=== PATIENT | female | born 1970 | race Caucasian/White ===

== ENCOUNTER → 2019-02-14 09:29 | Outpatient (CLI) | payer BC, SELFPAY ==
--- NOTE | 2019-02-14 10:00 | CT_ITS ---
CT abdomen pelvis wo con CLINICAL INDICATION: ITS.REASON: RLQ PAIN,ABD MASS, ORDERING PHYSICIAN: Chanelle William APRN PATIENT AGE: 48 years COMPARISON: 03/19/2013 TECHNIQUE: Axial images obtained with sagittal and coronal reformats. All CT scans at the facility use one or more dose reduction, viz: automated exposure control, ma/kV adjustment per patient size (including targeted exams where dose is matched to indication, i.e. head), or iterative reconstruction technique. PROCEDURE: Oral Contrast: None IV Contrast: None . FINDINGS: Lower thorax: There is a nodular density in the right lung base posteriorly which measures approximately 10 x 6 mm. At least a portion of this is felt to have been imaged on older exam of 03-30. There is an additional 6 mm nodule in the left lower lobe have also been present previously. The images are obtained higher in the chest on today's study. There is a questionable smaller nodules in the right lower lobe seen on the most superior image. Dedicated CT chest may be followed by clinically desired. There is an isodensity in the right hepatic lobe at 5 mm unchanged suggesting a small cyst. The gallbladder, spleen, adrenal glands, pancreas, and kidneys have an unremarkable unenhanced appearance. No intestinal obstruction or free air. Unremarkable appendix. There is diverticulosis of the sigmoid colon but no evidence of diverticulitis. No pelvic mass or abnormal fluid collection or focal inflammatory change. There is a bone island within the right ilium. No acute bony findings are evident. IMPRESSION: 1. No acute abdominal or pelvic findings. 2. Bilateral lower lobe pulmonary nodules. Some of these are incompletely imaged and may be better evaluated with dedicated chest CT with contrast
== END ==
PROVIDERS: PCP Family Medicine; Visit Provider Nurse Practitioner Family
DX: R10.31 Right lower quadrant pain (principal); R19.00 Intra-abdominal and pelvic swelling, mass and lump, unspecified site; R91.8 Other nonspecific abnormal finding of lung field
CPT/HCPCS: 74176

== ENCOUNTER 2019-02-21 14:30 | Outpatient (RCR) | payer BC, SELFPAY ==
--- NOTE | 2019-02-15 16:43 | HMH.PTOPEV ---
PT Outpatient Evaluation Rehab PT Outpatient Evaluation Start: 02/15/19 15:56 Freq: Status: Active Protocol: Document 02/15/19 16:31 GERRYREGINO (Rec: 02/15/19 16:42 FRANCISCOSTEW [id number]) Electronically Signed By Paul Navarro, PT 02/15/19 16:31 Outpatient Therapy Subjective History Subjective History Pt is a 48 year old female presenting to outpatient PT with [facility] an episode of increased lifting acitivity . Most recent diagnostics indicate mild multi-level degenerative issues. Comorbidities include undisclosed GI issues and hx of tubal ligation. Chief Complaint Pain,Spasms,Stiff Symptom Type Ache Symptoms Relieved By Rest/Positioning,Heat, Prescription Meds Prior Functional Limitations None Current Functional Limitations Reaching,Lifting,Housework, Standing,Squatting,Recreation Activity,Walking,Bending/ Stooping Symptom Description Constant but Variable Level of pain today (0-10) 4 Pain scale - at its best (0-10) 6 Pain scale - at its worst (0-10) 1 Lumbopelvic Eval Posture Thoracic Spine Posture Standing Position Increased Kyphosis Lumbar Spine Posture Standing Position Increased Lordosis Assistive device Assistive Devices None / NA Gait Observation General Gait Pattern Observation No Deviations/Normal Palapation tenderness bilateral thoracic spinal tenderness Yes: 2/4 lumbar spinal tenderness Yes: 3/4 paraspinal tenderness Yes: 3/4 buttock tenderness Yes: 3/4 Accessory Movement L2 bilateral L3 bilateral L4 bilateral L5 bilateral S1 bilateral Range of Motion Lumbar Spine Active Flexion Range of 65 Motion (degrees) Lumbar Spine Active Extension Range of 10 Motion (degrees) Left Lumbar Spine Lateral Flexion Active 18 Range of Motion (degrees) Right Lumbar Spine Lateral Flexion 16 Active Range of Motion (degrees) Lumbar Spine ROM Limitations Soft Tissue Tightness Manual Muscle Test Bilateral Knee Extension Strength Grade 5 Normal Knee Flexion Strength Grade 5 Normal Hip Flexion Strength Grade 5 Normal Extensor Hallucis Longus Strength Grade 5 Normal
== END 2019-02-21 14:35 | disposition home or self-care (01) ==
LOC: PT 14:30
PROVIDERS: Visit Provider Nurse Practitioner Family
DX: M54.5 Low back pain (principal)
CPT/HCPCS: 97010; 97014; 97035; 97110; 97163; G0283

== ENCOUNTER 2019-07-23 13:00 | Outpatient (RCR) | payer BC, SELFPAY ==
--- NOTE | 2019-06-25 13:56 | HMH.PTOPEV ---
PT Outpatient Evaluation Rehab PT Outpatient Evaluation Start: 06/25/19 13:01 Freq: Status: Active Protocol: Document 06/25/19 13:44 PHOHERMAN (Rec: 06/25/19 13:56 PHORNE [id number]) Electronically Signed By Shahriar Mckeon, PT 06/25/19 13:44 Outpatient Therapy Subjective History Subjective History Pt is 48 yowf who presents with c/o left knee pain and stiffness x 1.5 mos S/P knee contusion. She states, I ran over a heater on my way out of the house for work because I was running late. SHe reports pain is worse on the medial side of the left knee and superior to the patella. SHe reports feeling increased swelling when she is standing for prolonged periods at work. She also states, I see it bruising on the side every day when it swells. She reports PMH of Asthma, OA, LBP, and anxiety. Chief Complaint Pain,Stiff Symptom Type Ache Symptoms Relieved By Rest/Positioning Symptoms Aggravated By Standing,Walking Prior Functional Limitations None Current Functional Limitations Standing,Walking Symptom Description Constant but Variable Level of pain today (0-10) 2 Pain scale - at its worst (0-10) 10 Hip/Knee Eval Gait Observation General Gait Pattern Observation Antalgic Gait Palpation Tenderness left Knee Palpation Finding Tenderness Knee Palpation Overall Comment exaggerated tenderness to medial jt line, quad tendon, and popliteal fossa. MMT Hip Flexion Strength Grade 5 Normal Hip Abduction Strength Grade 5 Normal Hip Adduction Strength Grade 5 Normal Hip Extension Strength Grade 5 Normal Knee Extension Strength Grade 4 Good Knee Flexion Strength Grade 4 Good ROM Knee Extension Active Range of Motion ( -10 degrees) Knee Extension Passive Range of Motion ( 0 degrees) Knee Flexion Active Range of Motion ( 10-120 degrees) Knee Flexion Passive Range of Motion ( 0-127 degrees) Special Tests Sciatic Nerve Tension Test Negative Left,Negative Right Hip Scouring (Quadrant) Test Negative Left,Negative Right Knee Apley Compression Test Negative Left,Negative Right Knee Anterior Drawer Test Negative Left,Negative Right
== END 2019-07-23 13:05 | disposition home or self-care (01) ==
LOC: PT 13:00
PROVIDERS: PCP Family Medicine; Visit Provider Orthopaedic Surgery
DX: S80.02XA Contusion of left knee, initial encounter (principal)
CPT/HCPCS: 97010; 97014; 97016; 97035; 97110; 97163; G0283

== ENCOUNTER → 2020-05-05 14:47 | Outpatient (CLI) | payer BC, SELFPAY ==
--- NOTE | 2020-05-05 | XR_ITS ---
PROCEDURE: XR HAND RT MIN 3V CLINICAL INDICATION: SWELLING RT HAND COMPARISON: CR HANDL3 HAND-LT-3 VIEWS from 03/23/2016 FINDINGS: No fracture or dislocation. No lytic or blastic change. There is normal mineralization. There are mild osteoarthritic changes involving the interphalangeal joint of the thumb, the DIP joint of the 2nd and 5th digit and the 1st metacarpal-carpal joint. There is a lucency involving the tuft of the distal phalanx of the 5th finger at 3 mm. Other findings:None. IMPRESSION: Mild osteoarthritic change. Lucent lesion at the tip of the distal phalanx of the 5th finger possibly due to an inclusion cyst Dictated by: Eric Russell MD 05/05/2020 16:22 Eric Russell MD in [place] 05/05/2020 16:22
--- NOTE | 2020-05-05 | XR_ITS ---
PROCEDURE: XR SHOULDER LT MIN 2V CLINICAL INDICATION: ACUTE PAIN LT SHOULDER COMPARISON: No exams were available for comparison FINDINGS: No fracture or dislocation. No lytic or blastic change. There is normal mineralization. Mild osteoarthritic changes of the acromioclavicular and glenohumeral joint. No acute fracture or dislocation. No lytic or blastic change. There is narrowing of the subacromial space. Other findings:. IMPRESSION: Mild osteoarthritis with subacromial stenosis Dictated by: Eric Russell MD 05/05/2020 16:18 Eric Russell MD in [place] 05/05/2020 16:18
== END ==
PROVIDERS: PCP Family Medicine; Visit Provider Nurse Practitioner Family
DX: M25.512 Pain in left shoulder (principal); M25.612 Stiffness of left shoulder, not elsewhere classified; M79.89 Other specified soft tissue disorders
CPT/HCPCS: 73030; 73130

== ENCOUNTER → 2020-05-26 13:59 | Outpatient (CLI) | payer BC, SELFPAY ==
--- NOTE | 2020-05-26 14:05 | MR_ITS ---
PROCEDURE: MR SHOULDER LT WO CON CLINICAL INDICATION: ACUTE PAIN OF LEFT SHOULDER Pt. c/o left shoulder pain x 3 months when she moves arm certain ways. Pt. co pain when she lifts arm and puts arm behind her back. Pt denies trauma or injury. Sat COMPARISON: CR XR SHOULDER LT MIN 2V from 05/05/2020 TECHNIQUE: Routine multiplanar multi echo sequences are performed without gadolinium enhancement. FINDINGS: Complete tear involves the supraspinatus tendon with mild retraction of the musculotendinous fibers. Full-thickness tear is present involving the infraspinatus tendon in its mid aspect laterally. There are some intact tendon fibers present posteriorly. There is subacromial stenosis with subacromial space measuring 4 mm. There are mild hypertrophic changes of the acromioclavicular joint. The subscapularis and teres minor tendons are intact. No obvious labral tear. The labrum is not well delineated due to motion artifact. The bicipital tendon does appear to be in place. No acute fracture or dislocation is evident. There is a small amount fluid in the shoulder joint and subcoracoid space as well as deep to the deltoid muscle and acromion. Small amount fluid is present in the bicipital tendon sheath. There is a small area of increased T2 signal in the subcortical region of the humeral head laterally IMPRESSION: 1. Complete tear of the supraspinatus tendon with retraction of the musculotendinous fibers. 2. Full-thickness tear of the infraspinatus tendon. 3. Acromioclavicular arthropathy/hypertrophy with subacromial stenosis. Dictated by: Eric Russell MD 05/27/2020 13:45 Eric Russell MD in [place] 05/27/2020 13:45
== END ==
PROVIDERS: PCP Family Medicine; Visit Provider Nurse Practitioner Family
DX: M25.512 Pain in left shoulder (principal); M25.612 Stiffness of left shoulder, not elsewhere classified; S49.92XA Unspecified injury of left shoulder and upper arm, initial encounter
CPT/HCPCS: 73221

== ENCOUNTER → 2020-06-16 09:27 | Outpatient (CLI) | payer BC, SELFPAY ==
--- NOTE | 2020-06-16 09:30 | XR_ITS ---
PROCEDURE: XR SHOULDER LT MIN 2V CLINICAL INDICATION: left shoulder pain COMPARISON: CR XR SHOULDER LT MIN 2V from 05/05/2020 FINDINGS: No fracture or dislocation. No lytic or blastic change. There is normal mineralization. The joint spaces are well-preserved. No significant degenerative/arthritic changes. No erosive changes evident. Other findings:Borderline subacromial stenosis. IMPRESSION: Borderline subacromial stenosis otherwise negative shoulder Dictated by: Eric Russell MD 06/16/2020 12:44 Eric Russell MD in [facility] 06/16/2020 12:44
== END ==
PROVIDERS: PCP Family Medicine; Visit Provider Orthopaedic Surgery
DX: M25.512 Pain in left shoulder (principal)
CPT/HCPCS: 73030

== ENCOUNTER → 2021-05-04 09:00 | Outpatient (POV) | payer BC, SELFPAY | PROVIDERS: Visit Provider Dermatology | DX: Z00.00 Encounter for general adult medical examination without abnormal findings (principal) ==

== ENCOUNTER → 2021-05-14 13:58 | Outpatient (CLI) | payer BC, SELFPAY | PROVIDERS: PCP Nurse Practitioner Family; Visit Provider Nurse Practitioner Family | DX: Z20.822 Contact with and (suspected) exposure to COVID-19 (principal); U07.1 COVID-19 | CPT/HCPCS: U0003 ==

== ENCOUNTER → 2021-06-04 11:11 | Outpatient (CLI) | payer BC, SELFPAY ==
--- NOTE | 2021-06-04 11:18 | XR_ITS ---
PROCEDURE: XR SHOULDER RT MIN 2V CLINICAL INDICATION: INJURY OF RT SHOULDER INITIAL ENCOUNTER, DECREASED ROM And COMPARISON: CR XR SHOULDER LT MIN 2V from 05/05/2020 CR XR SHOULDER LT MIN 2V from 06/16/2020 FINDINGS: No fracture or dislocation. No lytic or blastic change. There is normal mineralization. Mild osteoarthritic changes are present at the acromioclavicular joint. The glenohumeral joint has an unremarkable appearance. Other findings:Mild subacromial stenosis IMPRESSION: Mild acromioclavicular osteoarthropathy with mild subacromial stenosis Dictated by: Eric Russell MD 06/07/2021 07:56 Eric Russell MD in [facility] 06/07/2021 07:56
== END ==
PROVIDERS: PCP Nurse Practitioner Family; Visit Provider Nurse Practitioner Family
DX: S49.91XA Unspecified injury of right shoulder and upper arm, initial encounter (principal); M25.611 Stiffness of right shoulder, not elsewhere classified
CPT/HCPCS: 73030

== ENCOUNTER → 2021-06-08 13:54 | Outpatient (POV) | payer BC, SELFPAY | PROVIDERS: Visit Provider Dermatology | DX: Z00.00 Encounter for general adult medical examination without abnormal findings (principal) ==

== ENCOUNTER → 2021-06-15 10:58 | Outpatient (CLI) | payer BC, SELFPAY ==
--- NOTE | 2021-06-15 11:06 | US_ITS ---
PROCEDURE: US THYROID CLINICAL INDICATION: LT NECK SWELLING AFTER SURGERY COMPARISON: No exams were available for comparison FINDINGS: Right lobe: The right lobe is 4.7 x 1.7 by 1.8 cm. Numerous nodules are present on the right some of which are cystic. A 6 mm cyst is present in the upper pole. 3 mm cyst upper pole anteriorly. The additional 3 mm cyst upper pole anteriorly. Mixed nodules present in the mid polar region mostly cystic with internal area of increased echogenicity with a nodule measuring 5 x 4 mm. 3 mm cyst lower pole. In the inferior tip of the lower pole there is a hypoechoic nodule at 1 by 1 cm. The nodule is well-circumscribed wider than tall with some internal areas of increased echogenicity without obvious calcification. TR level 3 less than 2.5 cm. Left lobe: 4.7 x 3.4 x 3.2 cm. Multiple nodules are present on the left the most of which are cystic. The largest cystic lesion is 2.8 by 3.2 cm. There is some increased echogenicity along the posterior aspect of this lesion possibly due to artifact versus internal debris. There is some irregularity of the wall inferiorly. No calcifications. Isthmus: A solid-appearing isoechoic nodules present in the isthmus at 1 by 1 cm by 0.6 cm wider than tall well-circumscribed without obvious calcifications. This is slightly hypoechoic. Two additional cysts are present in the isthmus. Additional findings: Ultrasound performed of the area of patient's recent surgery showing no obvious fluid collections. IMPRESSION: Mildly enlarged thyroid gland with numerous bilateral cysts. The largest cyst is in the left lobe at 2.8 x 3.2 cm and has a complex appearance. There is a TR level 3 nodule less than 2.5 cm in the lower pole on the right. Recommend six-month sonographic follow-up to confirm stability. Dictated by: Eric Russell MD 06/15/2021 12:42 Eric Russell MD in [facility] 06/15/2021 12:42
== END ==
PROVIDERS: PCP Family Medicine; Visit Provider Dermatology
DX: R22.1 Localized swelling, mass and lump, neck (principal)
CPT/HCPCS: 76536

== ENCOUNTER → 2021-07-07 13:11 | Outpatient (CLI) | payer BC, SELFPAY | PROVIDERS: PCP Family Medicine; Visit Provider Nurse Practitioner Family | DX: R22.1 Localized swelling, mass and lump, neck (principal) ==

== ENCOUNTER → 2021-09-23 09:24 | Outpatient (CLI) | payer BC, SELFPAY ==
--- NOTE | 2021-09-23 09:28 | XR_ITS ---
FINAL REPORT CLINICAL HISTORY: right shoulder pain FINDINGS: 3 views of the right shoulder were obtained. There is no acute fracture or dislocation. There are mild hypertrophic changes involving the AC joint. There are no soft tissue abnormalities. IMPRESSION: Mild hypertrophic change of the AC joint. Reviewed, Interpreted and Dictated by Yosef Menendez MD Transcribed by Darrell Dejesus Authenticated by Yosef Menendez MD on 09/23/2021 11:56:[address] [facility]
== END ==
PROVIDERS: PCP Family Medicine; Visit Provider Orthopaedic Surgery
DX: M25.511 Pain in right shoulder (principal)
CPT/HCPCS: 73030